=== PATIENT | male | born 1955 | race Caucasian/White ===

== ENCOUNTER 2021-08-06 13:31 | Emergency (ER) | payer MEDICARE, OTHER, SELFPAY ==
[2021-08-06 14:02] VITALS: BP 134/82; PULSE 82; RESP 18; TEMP 36.5; O2SAT 97
--- NOTE | 2021-08-06 14:34 | CTR_ITS ---
PROCEDURE INFORMATION: Exam: CT Head Without Contrast Exam date and time: 08/06/2021 3:34 PM Age: 66 years old Clinical indication: Injury or trauma; Other: Hit head on trailer hitch; Laceration; Without residual foreign body; Head, generalized; Additional info: Fall TECHNIQUE: Imaging protocol: Computed tomography of the head without contrast. Radiation optimization: All CT scans at this facility use at least one of these dose optimization techniques: automated exposure control; mA and/or kV adjustment per patient size (includes targeted exams where dose is matched to clinical indication); or iterative reconstruction. COMPARISON: No relevant prior studies available. RADIATION DOSE METRICS: Total DLP (mGy-cm): 939.32 FINDINGS: Brain: Nonspecific scattered punctate calcifications throughout the brain parenchyma. No hemorrhage. No edema. Mild diffuse cerebral atrophy. No significant white matter disease. No mass effect. Cerebral ventricles: No ventriculomegaly. Paranasal sinuses: Visualized sinuses are unremarkable. No fluid levels. Mastoid air cells: Visualized mastoid air cells are well aerated. Bones/joints: Unremarkable. No acute fracture. Soft tissues: Laceration with skin maribel along the left superior frontal scalp. CT/CT head wo con* [id number] IMPRESSION: No acute intracranial abnormality.
--- NOTE | 2021-08-06 15:26 | ED_ITS ---
Documented by User: Alejandra Anderson PA-C 08/06/21 16:02 HPI - Wound/Laceration General: Chief Complaint: Wound/Laceration Stated Complaint: Head injury due to fall Time Seen by Provider: 08/06/21 15:14 Source: patient Mode of arrival: ambulatory Limitations: no limitations History of Present Illness: 66-year-old male presents to the ER today for head laceration. Patient reports he was going underneath a 5th wheel and hit his head on the hitch. Patient reports he did not lose consciousness. He reports there is some pain and tenderness. He reports he is on Eliquis. Patient denies any headache, dizziness, nausea, vomiting at this time. Patient reports he did not clean the wound before arriving. Review of Systems General: Reports: 10 or more systems reviewed and unremarkable except in HPI and below Physical Exam Const: COMMON NORMALS: no acute distress, average body habitus, patient oriented x3, no limitations, healthy appearing, alert and well nourished HENMT: HEAD & SCALP: laceration (4 cm) HEAD IMAGES: 1. 4 cm laceration FACE & SINUS: normal facial exam Eye: COMMON NORMALS: EOMs intact bilaterally and conjunctivae normal CONJUNCTIVA: Yes conjunctivae normal Neck/C-Spine: COMMON NORMALS: full ROM and no lymphadenopathy Resp: COMMON NORMALS: normal respiratory effort, No retractions and clear to auscultation bilaterally AUSCULTATION: clear to auscultation bilaterally Cardio: COMMON NORMALS: regular rate and regular rhythm RATE: regular rate RHYTHM: regular rhythm Extremity: COMMON NORMALS: normal to inspection and full ROM Neuro: COMMON NORMALS: patient oriented x3 SENSORIUM/ORIENTATION: Yes alert Psych: COMMON NORMALS: mental status grossly normal, Normal thought process present, cooperative, normal affect and speech normal SPEECH: Yes normal speech THOUGHT PROCESS: Normal thought process present Skin: NARRATIVE SKIN EXAM: See head exam for laceration details. Procedures Laceration Laceration 1: Site: scalp Side (If applicable): left Size (cm): 4 Description: linear Depth: simple, single layer Skin layer closed with: other (4 maribel) Course ED course: 66-year-old male presents to the ER today for a scalp laceration. Patient reports he was walking under a 5th wheel and hit his head on the hitch. Patient reports no active bleeding at this time. He reports he is on Eliquis. He denies any headache, dizziness, vision changes, nausea, vomiting. Patient reports it is tender to the touch. He did not lose consciousness when he did this. On exam patient has a 4 cm laceration to the left side of the scalp. We will close this with maribel in the ER. Given Eliquis use, we will go ahead and CT patient's head. Vital Signs: Vital signs: Vital Signs Temperature 97.7 F 08/06/21 14:02 Pulse Rate 82 08/06/21 14:02 Respiratory Rate 18 08/06/21 14:02 Blood Pressure 134/82 08/06/21 14:02 Pulse Oximetry 97 08/06/21 14:02 MDM - Wound/Laceration Medical Decision Making 66-year-old male presents to the ER today for a scalp laceration. Patient reports he was walking under a 5th wheel and hit his head on the hitch. Patient reports no active bleeding at this time. He reports he is on Eliquis. He denies any headache, dizziness, vision changes, nausea, vomiting. Patient reports it is tender to the touch. He did not lose consciousness when he did this. On exam patient has a 4 cm laceration to the left side of the scalp. We will close this with maribel in the ER. Given Eliquis use, we will go ahead and CT patient's head. CT is normal. Patient's scalp laceration was closed with 4 maribel. Patient tolerated the procedure well. See laceration note. Discussed wound care and home follow-up in 7 to 10 days for staple removal. Take Tylenol for pain. Return to the ER with new or worsening symptoms. Patient verbalized understanding and was in agreement with the treatment plan. Lab Data Radiology Impressions Head CT 08/06/21 14:34 IMPRESSION: No acute intracranial abnormality. Critical Care Time Critical Care Time: Critical Care Time: No Discharge Plan Discharge Patient Disposition: Home Clinical Impression: Laceration of scalp Condition: Stable Discharge Orders: Discharge ED (Routine); Ordered 08/06/21 Ordered By: Alejandra Anderson Discharge Diet: Usual diet Discharge Activity: Increase activity as tolerated Patient Instructions: Scalp Laceration, Opioid Safety Activity Restrictions/Additional Instructions: Apply ice to reduce swelling. Keep wound clean. Follow-up with PCP in 7 to 10 days for staple removal. Take Tylenol for pain. Return to the ER with new or worsening symptoms. 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 4 cm laceration Course Vital Signs: Vital signs: Vital Signs Temperature 97.7 F 08/06/21 14:02 Pulse Rate 82 08/06/21 14:02 Respiratory Rate 18 08/06/21 14:02 Blood Pressure 134/82 08/06/21 14:02 Pulse Oximetry 97 08/06/21 14:02 MDM - Wound/Laceration Medical Decision Making 66-year-old male presents to the ER today for a scalp laceration. Patient reports he was walking under a 5th wheel and hit his head on the hitch. Patient reports no active bleeding at this time. He reports he is on Eliquis. He denies any headache, dizziness, vision changes, nausea, vomiting. Patient reports it is tender to the touch. He did not lose consciousness when he did this. On exam patient has a 4 cm laceration to the left side of the scalp. We will close this with maribel in the ER. Given Eliquis use, we will go ahead and CT patient's head. CT is normal. Patient's scalp laceration was closed with 4 maribel. Patient tolerated the procedure well. See laceration note. Discussed wound care and home follow-up in 7 to 10 days for staple removal. Take Tylenol for pain. Return to the ER with new or worsening symptoms. Patient verbalized understanding and was in agreement with the treatment plan. I have reviewed this documentation by Alejandra MCFARLANE. Oscar Whitney MD Emergency Medicine Lab Data Radiology Impressions Head CT 08/06/21 14:34 IMPRESSION: No acute intracranial abnormality. Discharge Plan Discharge Patient Disposition: Home Clinical Impression: Laceration of scalp Condition: Stable Discharge Orders: Discharge ED (Routine); Ordered 08/06/21 Ordered By: Alejandra Anderson Discharge Diet: Usual diet Discharge Activity: Increase activity as tolerated Patient Instructions: Scalp Laceration, Opioid Safety Activity Restrictions/Additional Instructions: Apply ice to reduce swelling. Keep wound clean. Follow-up with PCP in 7 to 10 days for staple removal. Take Tylenol for pain. Return to the ER with new or worsening symptoms. 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
[2021-08-06] MEDS: tetanus-dipt-pertussis 0.5 mL SDV IM (15:52)
== END 2021-08-06 16:05 | disposition home or self-care (01) ==
PROVIDERS: Emergency Provider Physician Assistant
DX: S01.01XA Laceration without foreign body of scalp, initial encounter (principal); W22.09XA Striking against other stationary object, initial encounter; Z23 Encounter for immunization
CPT/HCPCS: 12002; 70450; 90471; 90715; 99283